=== PATIENT | male | born 1970 | race African-American/Black ===

== ENCOUNTER 2025-03-24 17:24 | Emergency (ER) | payer OTHER ==
[~2025-03-24] VITALS: Ht 177.8 cm; Wt 96.1 kg
[2025-03-24 17:25] VITALS: BP 134/87; PULSE 108; RESP 16; TEMP 98.4; O2SAT 98
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
[2025-03-24] MEDS: TETanus/Pertussis (Acell)/Diphther VAC/PF (Tdap-Adult) 0.5ml syringe IMVAC ONE (19:17)
[2025-03-24] MEDS: LIDOcaine 1% W/epiNEPHrine 1:100,000 20ml vial SQ ONE (19:18)
== END 2025-03-24 19:41 | disposition home or self-care (01) ==
LOC: ER 17:25
DX: S41.112A Laceration without foreign body of left upper arm, initial encounter (principal); X58.XXXA Exposure to other specified factors, initial encounter; Y93.89 Activity, other specified; Y92.89 Other specified places as the place of occurrence of the external cause; Y99.8 Other external cause status
CPT/HCPCS: 12001; 90471; 90715; 99283; J3490; A6449